=== PATIENT | male | born 1970 | race Caucasian/White ===

== ENCOUNTER 2017-06-29 17:38 | Emergency (ER) | payer SELFPAY ==
[2017-06-29 17:56] VITALS: BMI 30.5
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
[2017-06-29] MEDS ORDERED: TORADOL 60 MG VIAL IM ONE (18:09)
[2017-06-29] MEDS ORDERED: TORADOL 60 MG VIAL ONE (18:10)
[2017-06-29] MEDS ORDERED: TORADOL TAB PO ONE ×2 (18:17→18:21)
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
--- NOTE | 2017-06-29 20:18 | RAD ---
Two views of the right knee Indication: Patellar pain Findings: The patella is elevated with respect to its normal position within the femoral trochlear reed lcus with ossification of the proximal patellar tendon consistent with patellar tendon injury tear/pa tella moraima. There is moderate prepatellar soft tissue swelling . Small suprapatellar joint effusion. The femorotibial compartment demonstrates no significant joint space narrowing or abnormal alignment. Impression: Patella moraima with ossification along the course of the patellar tendon consistent with pa tellar tendon tear. Orthopedic consultation with followup right knee MRI is recommended for further e valuation. Reported By:
[2017-06-29] MEDS ORDERED: NORCO 7.5/325 MG TAB PO ONE (22:07)
[2017-06-29] MEDS ORDERED: NORCO 7.5/325 MG TAB ONE (22:09)
[2017-06-29 22:35] VITALS: BP 158/87
== END 2017-06-29 22:30 | disposition home or self-care (01) ==
LOC: ER 18:11
DX: S89.80XA Other specified injuries of unspecified lower leg, initial encounter (principal); M25.561 Pain in right knee; M25.562 Pain in left knee; X58.XXXA Exposure to other specified factors, initial encounter; Y92.9 Unspecified place or not applicable
CPT/HCPCS: 29530; 73560; 99282; 99283; J1885